=== PATIENT | male | born 1995 | race African-American/Black ===

== ENCOUNTER 2019-01-12 19:46 | Emergency (ER) | payer SELFPAY ==
[2019-01-12 19:47] VITALS: BP 147/85; PULSE 82; RESP 18; TEMP 36.9; O2SAT 100; BMI 27.7
--- NOTE | 2019-01-12 20:26 | ED.DEP ---
ED Disposition - Plan for ED Patient: Instructions: Understanding STDs Referrals: NOT,DEFINED [Primary Care Provider] -
--- NOTE | 2019-01-12 20:30 | ED.VISSUMM ---
- ER Visit Summary Date of Service: 01/12/19 Chief Complaint: Concern for STD History of Present Illness: The patient is a 23 M presenting with concern for STD. Patient states his significant other was diagnosed with chlamydia on December 24. He was treated at that time at [facility]. He says they were told to wait 7 days before having sexual intercourse. He states they only waited 5 days. He went to [facility] [place] and was treated again on January 01. They were told to wait 7 days before having sex. He states that they waited approximately 5 days. Currently asymptomatic. He denies rash, drainage, pain. Physical Examination: Vitals are stable. Patient is afebrile. Alert no acute distress. HEENT exam is unremarkable. Neck is supple. Lungs are clear and equal bilaterally. Heart is regular rate and rhythm. Abdomen is soft nontender nondistended. Extremities are unremarkable. Skin is warm and dry. No rash Remainder of exam is unremarkable. Emergency Department Course and Treatment: GC chlamydia test was sent. Patient is currently asymptomatic. He will be notified if the test is positive. Advised to follow-up with primary care physician. Advised return to ED if worsening complaints. Disposition: Discharge home Impression: Concern for STD This note was generated with [employer] dictation software. It may contain incorrect words, spelling, and punctuation that were not noted in review of the chart prior to signing ED Disposition - Plan for ED Patient: Instructions: Understanding STDs Referrals: NOT,DEFINED [Primary Care Provider] -
--- NOTE | 2019-01-12 20:33 | ED.DCSUM_ITS ---
- ER Visit Summary Date of Service: 01/12/19 Chief Complaint: Concern for STD History of Present Illness: The patient is a 23 M presenting with concern for STD. Patient states his significant other was diagnosed with chlamydia on December 24. He was treated at that time at [facility]. He says they were told to wait 7 days before having sexual intercourse. He states they only waited 5 days. He went to [facility] and was treated again on January 01. They were told to wait 7 days before having sex. He states that they waited approximately 5 days. Currently asymptomatic. He denies rash, drainage, pain. Physical Examination: Vitals are stable. Patient is afebrile. Alert no acute distress. HEENT exam is unremarkable. Neck is supple. Lungs are clear and equal bilaterally. Heart is regular rate and rhythm. Abdomen is soft nontender nondistended. Extremities are unremarkable. Skin is warm and dry. No rash Remainder of exam is unremarkable. Emergency Department Course and Treatment: GC chlamydia test was sent. Patient is currently asymptomatic. He will be notified if the test is positive. Advised to follow-up with primary care physician. Advised return to ED if worsening complaints. Disposition: Discharge home Impression: Concern for STD This note was generated with [employer] dictation software. It may contain incorrect words, spelling, and punctuation that were not noted in review of the chart prior to signing ED Disposition - Plan for ED Patient: Instructions: Understanding STDs Referrals: NOT,DEFINED [Primary Care Provider] -
[2019-01-12 22:35] LABS: Chlamydia Trachomatis by PCR Negative (Negative); Neisserai gonorrhoeae by PCR Negative (Negative); Probe Check PASS; Sample Adequacy Control PASS; Specimen Processing Control PASS
== END 2019-01-12 20:46 | disposition home or self-care (01) ==
LOC: ED 20:37
PROVIDERS: Emergency Provider Emergency Medicine
DX: Z11.3 Encounter for screening for infections with a predominantly sexual mode of transmission (principal); Z72.0 Tobacco use
CPT/HCPCS: 87491; 87591; 99281